=== PATIENT | male | born 1985 | race Two or more races ===

== ENCOUNTER 2017-02-05 17:07 | Emergency (ER) | payer SELFPAY ==
[2017-02-05 17:11] VITALS: BP 119/66
--- NOTE | 2017-02-05 18:04 | RAD ---
INDICATION: Left ankle injury. TECHNIQUE: 3 views of the left ankle were obtained. FINDINGS: There is diffuse soft tissue swelling. There is a transverse fracture of the medial malleolus which extends to the articular margin. The distal fragment is distracted inferior approximately 8 mm. On the very edge of the film note is made of a fracture of the mid diaphysis of the fibula. IMPRESSION: 1. TRANSVERSE DISPLACED INTRA-ARTICULAR FRACTURE OF THE MEDIAL MALLEOLUS. 2. FRACTURE OF THE MID DIAPHYSIS OF THE FIBULA PARTIALLY VISUALIZED ON THIS EXAM.
--- NOTE | 2017-02-05 18:05 | RAD ---
INDICATION: Left lower leg injury. TECHNIQUE: 2 views of the left lower leg were obtained. FINDINGS: There is an oblique slightly comminuted fracture of the mid diaphysis of the fibula. The distal fragment is displaced lateral proximal one cortical diameter. Again note is made of a transverse displaced fracture of the medial malleolus. IMPRESSION: 1. OBLIQUE SLIGHTLY DISPLACED FRACTURE OF THE MID DIAPHYSIS OF THE FIBULA. 2. TRANSVERSE DISPLACED INTRA-ARTICULAR FRACTURE OF THE MEDIAL MALLEOLUS.
--- NOTE | 2017-02-05 18:54 | ED ---
Lower Extremity - HPI Summary HPI Summary: Patient presents with injury to the left leg playing soccer. He thinks he everted his ankle as he fell. He is only having pain over the medial malleolus and denies pain in the leg or knee or foot. Denies numbness, tingling. color or temperature changes. Obvious deformity seen over medial portion of the left ankle without ecchymosis or break in skin. Denies other injuries or hitting his head. He denies previous injury to the leg. - History of Current Complaint Chief Complaint: EDExtremityLower Stated Complaint: LEFT ANKLE PAIN Time Seen by Provider: 02/05/17 18:02 Hx Obtained From: Patient Mechanism Of Injury: Fall From A Standing Position Onset of Pain: Immediate Onset/Duration: Hours Severity Initially: Moderate Severity Currently: Moderate Pain Intensity: 8 Pain Scale Used: 0-10 Numeric Timing: Constant Location: Is Discrete @ - left medial malleolus Character Of Pain: Aching Associated Signs And Symptoms: Positive: Swelling Aggravating Factor(s): Standing, Ambulation Alleviating Factor(s): Elevation Able to Bear Weight: No - Risk Factors Gout Risk Factors: Male DVT Risk Factors: Negative Septic Arthritis Risk Factor: Negative - Allergies/Home Medications Allergies/Adverse Reactions: Allergies Allergy/AdvReac Type Severity Reaction Status Date / Time No Known Allergies Allergy Verified 02/05/17 17:12 PMH/Surg Hx/FS Hx/Imm Hx Previously Healthy: Yes - Immunization History Hx Pertussis Vaccination: No Immunizations Up to Date: Unable to Obtain/Confirm Infectious Disease History: No Infectious Disease History: Denies: Traveled Outside the [place] in Last 30 Days - Social History Occupation: Employed Full-time Lives: With Family Alcohol Use: None Hx Substance Use: No Substance Use Type: Reports: None Hx Tobacco Use: No Smoking Status (MU): Never Smoked Tobacco Do You Chew or Dip Tobacco: No Review of Systems Constitutional: Negative Eyes: Negative Cardiovascular: Negative Respiratory: Negative Positive: no symptoms reported, see HPI Positive: Arthralgia Skin: Negative Psychological: Normal All Other Systems Reviewed And Are Negative: Yes Physical Exam - Summary Physical Exam Summary: Thorough physical exam was performed, focusing on ankle special tests. Pain on palpation over medial aspect of the left ankle and superior aspect of ankle over deltoid ligaments. No pain on palpation over lateral side. Due to patient pain around injury, physical exam was limited. Unable to perform anterior drawer test or talar tilt test d/t pain. Cardona test negative. Limited ROM. Dorsiflexion, great toe extension and plantar flexion intact however limited. No pain on palpation over medial or lateral lower extremity. No pain with knee flexion. Pulses intact bilaterally. No temperature change or pallor noted bilaterally. Obvious deformity over medial malleolus noted. No lesion or disruption of skin is seen. Unable to bear weight. Triage Information Reviewed: Yes Vital Signs On Initial Exam: Initial Vitals Temp Pulse Resp BP Pulse Ox 97.6 F 88 15 119/66 100 02/05/17 17:10 02/05/17 17:10 02/05/17 17:10 02/05/17 17:10 02/05/17 17:10 Completion Of Physical Exam Limited Due To: Dementia Appearance: Positive: Well-Appearing, Well-Nourished Skin: Positive: Warm, Skin Color Reflects Adequate Perfusion Eyes: Positive: EOMI, BRET Neck: Positive: Supple, No Lymphadenopathy Respiratory/Lung Sounds: Positive: Clear to Auscultation, Breath Sounds Present Musculoskeletal: Positive: Pain @ - medial malleolus on palpation Neurological: Positive: Normal, Sensory/Motor Intact, Alert, Oriented to Person Place, Time Psychiatric: Positive: Normal AVPU Assessment: Alert - Rothsay Coma Scale Best Eye Response: 4 - Spontaneous Best Motor Response: 6 - Obeys Commands Best Verbal Response: 5 - Oriented Procedures - Splinting Location: left lower extremity Pre-Made Type: plaster Hand-Made Type: plaster Splint: with sugar tong Pre-Proc Neuro Vasc Exam: normal Post-Proc Neuro Vasc Exam: normal Diagnostics - Vital Signs Vital Signs Temp Pulse Resp BP Pulse Ox 02/05/17 17:11 97.6 F 85 16 119/66 100 02/05/17 17:10 97.6 F 88 15 119/66 100 - Laboratory Lab Statement: Any lab studies that have been ordered have been reviewed, and results considered in the medical decision making process. - Radiology No standard instances Xray Interpretation: Positive (See Comments) Radiology Interpretation Completed By: Radiologist - IMPRESSION: 1. OBLIQUE SLIGHTLY DISPLACED FRACTURE OF THE MID DIAPHYSIS OF THE FIBULA. 2. TRANSVERSE DISPLACED INTRA-ARTICULAR FRACTURE OF THE MEDIAL MALLEOLUS Lower Extremity Course/Dx - Course Course Of Treatment: Patient presents after injury from soccer with eversion of left ankle with pain to the medial malleolus with obvious deformity with no pain in knee or foot. No ecchymosis. IMPRESSION: 1. OBLIQUE SLIGHTLY DISPLACED FRACTURE OF THE MID DIAPHYSIS OF THE FIBULA. 2. TRANSVERSE DISPLACED INTRA-ARTICULAR FRACTURE OF THE MEDIAL MALLEOLUS. Plaster posterior walking with sugar tong placed. Patient tolerated well. [place] rx. Return precautions and instructions for crutches given. Patient OK iwth discharge. - Diagnoses Differential Diagnosis/HQI/PQRI: Positive: Contusion, Dislocation, Fracture ( Closed), Fracture (Open) Provider Diagnoses: Left fibular fracture, Medial malleolar fracture Discharge - Discharge Plan Condition: Stable Disposition: HOME Prescriptions: HYDROcodone/ACETAMIN 5-325 MG* [[place] 5-325 TAB*] 1 tab PO Q4H PRN #12 tab MDD 6 PRN Reason: Pain Patient Education Materials: Ankle Fracture (ED) Referrals: No Primary Care Phys,NOPCP [Primary Care Provider] - Min Siegel MD [Medical Doctor] - Additional Instructions: Follow up with Dr. Siegel. Call on Tuesday for appt Crutches for ambulation given. Ibuprofen 600mg three times daily with meals for pain. [place] if ibuprofen is not alleviating pain. Take these on opposite schedule as ibuprofen. DO NOT BEAR ANY WEIGHT ON ANKLE. Follow up with orthopedic physician in 5-7 days. If numbness, tingling, decreased sensation, increased pain, temperature changes or pallor noted in toes, come back to ER immediately. Protect the area. Ice. Not directly on the skin. Cover with a towel. Apply ice no more than 30 minutes at a time
== END 2017-02-05 20:21 | disposition home or self-care (01) ==
LOC: ED 17:07
DX: S82.402A Unspecified fracture of shaft of left fibula, initial encounter for closed fracture (principal); S82.52XA Displaced fracture of medial malleolus of left tibia, initial encounter for closed fracture; W19.XXXA Unspecified fall, initial encounter; Y93.9 Activity, unspecified; Y92.9 Unspecified place or not applicable; Y99.9 Unspecified external cause status
CPT/HCPCS: 99282

== ENCOUNTER → 2017-02-14 07:58 | Day surgery (SDC) | payer SELFPAY ==
--- NOTE | 2017-02-10 02:18 | HP ---
PREOPERATIVE HISTORY AND PHYSICAL: DATE OF ADMISSION/SURGERY: 02/14/17 DATE OF OFFICE VISIT: 02/08/17 ATTENDING SURGEON: Dr. Min Siegel. CHIEF COMPLAINT: Left leg fracture. PROCEDURE: Left ankle fracture open reduction and internal fixation. HISTORY OF PRESENT ILLNESS: Rashad is a 31-year-old male who presents to the clinic with left leg medial malleolus and fibular shaft fracture. The patient states that he was warming up for a soccer game. He stepped in a hole and fell on to the lateral aspect of his left leg. The injury was on 02/05/17. He heard and felt a pop immediately. He had immediate pain and swelling with difficulty weightbearing. He went to the ER where x-rays were performed and revealed a left leg medial malleolus fracture and fibular shaft fracture. He was placed in a splint. He reports some pain mostly in the medial aspect of his left ankle. He is taking ibuprofen as needed for the pain. He reports no prior injury or surgery to the left leg. He has been compliant with crutches. He rates the pain as a 7/10, aching pain. He has broken his thumb before; however, has had no prior fractures in his legs. He denies numbness and tingling. PAST MEDICAL HISTORY: No current problems. PAST SURGICAL HISTORY: No prior surgeries. MEDICATIONS: No active medications. ALLERGIES: No known drug allergies. FAMILY HISTORY: He denies pertinent family history. SOCIAL HISTORY: He lives with his spouse. 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 He denies tobacco use. He reports occasional alcohol use. He exercises regularly. He is right-hand dominant. REVIEW OF SYSTEMS: General: Negative for fever, chills, night sweats. No known anesthesia problems. HEENT: Negative for headache, lightheadedness, or syncopal episodes. Integumentary: Negative for abrasions, lesions, or open wounds. Cardiothoracic: Negative for chest pain, palpitations, or edema. Negative for hypertension. Pulmonary: Negative for shortness of breath with exertion, chronic cough, or COPD. GI: Negative for nausea, vomiting, diarrhea , constipation, or GERD. : Negative for nocturia, urinary frequency, urinary urgency, history of UTI, or kidney problems. Musculoskeletal: Positive for current complaint. Neuro: Negative for numbness or tingling, history of seizure, stroke, or epilepsy. Endocrine: Negative for diabetes or thyroid issues. Heme: Negative for easy bruising, anemia, excessive bleeding, history of DVT or PE or history of bleeding disorder. Infectious Disease: Negative for history of MRSA, hep C, or HIV. PHYSICAL EXAMINATION GENERAL: A 31-year-old, well-developed, well-nourished male in no acute distress. Alert and oriented x3. Appropriate mood and affect. VITAL SIGNS: Height 70, weight 180. Pulse 79, blood pressure 120/73, temperature 98.0. Pain level is 7. BMI 25.8. HEENT: Normocephalic, atraumatic. PERRLA. Throat clear. NECK: Supple. PULMONARY: Lungs are clear to auscultation bilaterally. No wheezing, rhonchi, or rales. CARDIO: Regular rate and rhythm. S1 and S2. No murmurs, gallops, or rubs. No edema. ABDOMEN: Positive bowel sounds, soft, nontender. MUSCULOSKELETAL: Left lower extremity: Skin is intact. No warmth or erythema. There is a splint intact. There is visible swelling in the toes. The patient is able to flex and extend all of his toes. His calf is soft and nontender to palpation. +2 dorsalis pedis pulse. Sensation is intact to light touch distally. Right lower extremity: Skin is intact. No warmth or erythema. Nontender to palpation. Full range of motion. +2 dorsalis pedis pulse. Sensation is intact to light touch distally. NEUROLOGIC: Alert and oriented x3. Cranial nerves grossly intact. Sensation is intact to light touch. DIAGNOSTIC STUDIES: Multiple view x-rays of the left leg reveal displaced medial malleolus fracture and displaced fracture of the diaphysis of the fibula. IMPRESSION: Left leg displaced medial malleolus fracture and displaced fibular diaphysis fracture. PLAN: The patient is scheduled to undergo a left ankle fracture open reduction and internal fixation with Dr. Siegel on 02/14/17. Before surgery, he should ice and elevate. Use ibuprofen as needed for the pain. Risks of surgeries to include infection, bleeding, blood clot, arthritis, stiffness, injury to blood vessels, nerves, surrounding structures, risk of anesthesia were explained to the patient. He has agreed to undergo with the left ankle fracture open reduction and internal fixation. He will return in about 10 to 14 days postop for followup and suture removal. Percocet was sent to the patient's pharmacy for postop pain management and Keflex was sent for antibiotic prophylaxis. BOBY ALMONTE [id number]/[facility] #: [id number] LYNN
[~2017-02-14 07:58] MED LIST: Buffered Lidocaine 0.9% SYRIN* 5 ML/SYR SYRINGE INTRADERM ONE; Bupivacaine 0.25% SDV* 30 ML ONE; Dexamethasone IV* 4 MG/ML 1 ML (4 MG) IV SLOW PU ONE; Dexamethasone IV* 4 MG/ML 1 ML (4 MG) ONE; Famotidine IV* 10 MG/ML 2 ML (20 mg) IV ONE; Famotidine IV* 10 MG/ML 2 ML (20 mg) ONE; KETAMINE HCL* 50 MG/ML 10 ML VIAL ONE; Ketorolac INJ* 30 MG/ML 1 ML VIAL ONE; Lidocaine 2% PF * 5 ML VIAL ONE; Midazolam* 1 MG/ML 2 ML VIAL (2 MG) ONE; Ondansetron INJ* 2 MG/ML VIAL ONE; Propofol* 10 MG/ML 20 ML BTL IV PUSH ONE; ceFAZolin 2 GM PREMIX(*) 2 GM/50 ML BAG IVPB ONE; fentaNYL* 50 MCG/ML 2 ML VIAL (100 MCG VIAL) ONE; fentaNYL* 50 MCG/ML 5 ML VIAL (250 MCG VIAL) ONE; oxyCODONE/Acetamin 5/325 MG* TAB ONE
[2017-02-14 14:15] VITALS: BP 141/77
--- NOTE | 2017-02-14 14:52 | RAD ---
CPT II Codes: 6045F INDICATION: Left ankle fracture. Fluoroscopic services provided for referring physician. 41.5 seconds of fluoroscopy time was used. 15 spot images were obtained for internal fixation of a posterior and medial malleolus fracture. IMPRESSION: Fluoroscopic services provided for referring physician for open reduction and internal fixation.
--- NOTE | 2017-02-15 14:39 | OP ---
DATE OF OPERATION: 02/14/17 [facility] DATE OF : 81 SURGEON: Min Siegel MD TELECOMMUNICATIONS EQUIPMENT INSTALLER: BOBY Elena. An medical practice assistant was needed for the entirety of the case to help with positioning, retraction, and was utilized throughout all portions of the case. ANESTHESIOLOGIST: Dr. Crenshaw. ANESTHESIA: General. PRE-OP DIAGNOSES: Left ankle fracture incorporating the medial malleolus, posterior malleolus as well as high fibular fracture. POST-OP DIAGNOSIS: Bimalleolar fracture with disruption of the syndesmosis. OPERATIVE PROCEDURE: 1. Left ankle ORIF of the medial malleolus. 2. Dynamic exam of the syndesmosis using fluoro. 3. ORIF of syndesmosis with a TightRope. INDICATIONS: Rashad Hassan is a 31-year-old male who was playing soccer on 02/05/17 when he sustained an injury, was unable to weight bear. He was evaluated in the ER and this was found to be operative. He followed up in my clinic for definitive care. After extensive discussion of the risks and benefits of the surgery versus nonoperative treatment, he has elected to proceed with surgical management. Risks include, but are not limited to, bleeding, infection, damage to nerves, vessels, surrounding structures, the wound not healing, persistent pain, need for further surgery, risk of arthritis , DVT, scarring, persistent pain, incomplete relief of symptoms, symptomatic hardware, need for further surgery as well as risk of anesthesia. COMPLICATIONS: None. ESTIMATED BLOOD LOSS: Minimal. TOURNIQUET TIME: 72 minutes at 250 mmHg. DISPOSITION: Stable. IMPLANTS USED: Two Synthes 4.0 cannulated screws and one Arthrex TightRope. DESCRIPTION OF PROCEDURE: The patient was greeted in the preoperative area by the attending surgeon. Correct extremity was marked and consent was confirmed. The patient was brought back to the operating suite where he was placed in supine position on the operating table. He then underwent general anesthesia with LMA intubation after which a bump was placed under his ipsilateral hip. A nonsterile tourniquet was placed high in the proximal thigh. The splint was then removed and the skin was examined. The skin was intact. He did have some mild fungus changes in between his toes distally, but there were no open wounds. The hair was clipped using a surgical clipper at the sites of the incision. The leg was then prepped and draped in the usual sterile fashion beginning with chlorhexidine soap, scrub, and alcohol wipe, and a final prep with ChloraPrep. After appropriate surgical pause indicating side, site, and procedure, administration of antibiotics, an Esmarch was used to exsanguinate the limb. A 15- blade was used to make a hockey-stick incision over the medial malleolus. Soft tissues were carefully dissected. The fracture was identified easily. The fascial layer was released proximally and distally so that the fracture site could be booked open and then cleaned carefully with a curette as well as irrigated thoroughly. Once this was done, a provisional reduction was then done. This was confirmed under C-arm. Then, 2 K-wires were placed in parallel to reduce the medial malleolus. A [place] was also used to make sure that the fracture did not go into varus so that the joint space is protected and maintained. Once the screws were confirmed in the AP and lateral views, these were then drilled with a cannulated drill bit and size 2/4.0 cannulated screws were then placed with excellent purchase. At this point, the external rotation stress test was then done under fluoroscopic guidance and there was evidence of mortise widening and decision was made to do a syndesmotic fixation. A 15-blade was used to make an incision approximately 2 cm proximal to the joint line. The soft tissues were carefully dissected. Care was taken to preserve any nerves and vessels that were present. The periosteum was then sharply incised and then the Arthrex guidewire was drilled, was passed from the fibula to the tibia approximately 2 cm proximal to the joint space in line with the joint, slightly angled from a posterior to anterior portion about 30 degrees with care to try to prevent interfering with the previous screw placement. Once this was appropriately placed, the cannulated drill was then passed over the screw through all 4 cortices. Again, this was confirmed by x- rays. The TightRope was then passed through the previously drilled tunnel and flipped on the tibial side. All soft tissue and debris was cleared to make sure that this was seated against bone. Once this was done, this was then cinched back into position with the foot in the dorsi-flexion and this was found to restore the syndesmosis. The stress test was repeated again and there was no evidence of medial clear space widening. Final images were obtained. The wounds were copiously irrigated. The wounds were closed in layers. The fascial layers were closed with 2-0 Vicryl. The subcutaneous tissues were closed with 2-0 Vicryl and the skin with 3-0 nylon. The wounds were then injected with approximately 30 cc of 0.25% Marcaine. Sterile dressings were applied. The tourniquet was released for a total time of 72 minutes. A well- padded posterior splint was then placed on the extremity. He was awoken from anesthesia and transferred to the PACU in stable condition. POSTOPERATIVE PLAN: He was able to flex and extend the digits. He will be nonweightbearing for approximately 8 weeks. He will follow up in our office in approximately 2 weeks for cast change versus being transitioned to a boot and removal of the sutures. DVT prophylaxis was considered and he will be placed on aspirin prophylactically. He will be discharged on pain medications as well as antibiotics. He will be discharged on pain medications and antibiotics. [id number]/[facility] #: [id number] LYNN
== END | disposition home or self-care (01) ==
LOC: OR 07:58
PROVIDERS: ATTEND Orthopaedic Surgery
DX: S82.52XA Displaced fracture of medial malleolus of left tibia, initial encounter for closed fracture (principal); W19.XXXA Unspecified fall, initial encounter; Y93.66 Activity, soccer; Y92.322 Soccer field as the place of occurrence of the external cause
CPT/HCPCS: 76000; A9270-GY; C1713; J0690; J1100; J1885; J2250; J2405; J2704; J3010

== ENCOUNTER 2019-08-20 13:54 | Emergency (ER) | payer OTHER ==
[2019-08-20 14:06] VITALS: BP 134/76
--- NOTE | 2019-08-20 14:13 | UC ---
Upper Extremity HPI - HPI Summary HPI Summary: 34yo male presenting with L elbow pain and swelling x4 weeks. Denies known injury or trauma. States pain comes and goes and is worse after a lot of movement/activity. States swelling improves with rest as well but that for the past two weeks, it "seems to be growing." Denies redness and warmth of the elbow. Denies decreased ROM. Denies current pain. Denies fever and chills. Patient states he injured the elbow 7-8 years ago. States his bone was chipped but did not require surgery. - History of Current Complaint Chief Complaint: UCUpperExtremity Stated Complaint: ELBOW PAIN Hx Obtained From: Patient Pain Intensity: 0 - Allergies/Home Medications Allergies/Adverse Reactions: Allergies Allergy/AdvReac Type Severity Reaction Status Date / Time No Known Allergies Allergy Verified 08/20/19 14:06 Home Medications: Home Medications NK [No Home Medications Reported] 08/20/19 [History Confirmed 08/20/19] PMH/Surg Hx/FS Hx/Imm Hx Previously Healthy: Yes - Surgical History Surgical History: Yes Surgery Procedure, Year, and Place: left ankle - Family History Known Family History: Positive: Non-Contributory - Social History Alcohol Use: Occasionally Substance Use Type: None Smoking Status (MU): Never Smoked Tobacco Review of Systems All Other Systems Reviewed And Are Negative: Yes Constitutional: Positive: Negative. Negative: Fever, Chills Skin: Negative: Bruising Respiratory: Positive: Negative Cardiovascular: Positive: Negative Gastrointestinal: Positive: Negative. Negative: Vomiting, Nausea Musculoskeletal: Positive: Arthralgia - L elbow, Edema - L elbow. Negative: Decreased ROM Neurological: Negative: Paresthesia, Numbness Physical Exam Triage Information Reviewed: Yes Appearance: Well-Appearing, No Pain Distress, Well-Nourished Vital Signs: Initial Vital Signs Temp 98.6 F 08/20/19 14:02 Pulse 83 08/20/19 14:02 Resp 16 08/20/19 14:02 BP 134/76 08/20/19 14:02 Pulse Ox 100 08/20/19 14:02 Vital Signs Reviewed: Yes Eyes: Positive: Conjunctiva Clear ENT: Positive: Hearing grossly normal Neck: Positive: Supple Respiratory: Positive: No respiratory distress Cardiovascular: Positive: Pulses Normal, Brisk Capillary Refill Musculoskeletal: Positive: Strength Intact, ROM Intact - equal and full flexion and extension of elbows b/l, Edema @ - L olecranon process, Other: - no tenderness to palpation of L olecranon Neurological: Positive: Alert Psychological: Positive: Age Appropriate Behavior Skin Exam: Normal - no erythema, warmth, lesions, abrasion, s/s of infection appreciated Diagnostics - Radiology L elbow Radiology Interpretation Completed By: Radiologist Summary of Radiographic Findings: REPORT AND IMPRESSION: #. Normal articular alignment. #. Chronic accessory ossicle or old avulsion fracture fragment adjacent to the medial epicondyle. #. Joint effusion and 0.5 cm loose body at the anterior joint recess. #. Mild osteoarthritis. #. No acute fracture evident. #. Significant focal soft tissue swelling overlying the olecranon process suspicious for olecranon bursitis. Correlate with clinical assessment. Upper Extremity Course/Dx - Course Course Of Treatment: Educated patient on elbow bursitis and symptomatic treatment. No sign of cellulitis or septic arthritis on physical exam. Educated on s/s of infective bursitis and instructed to go to ED if any occur. Instructed to follow up with ortho for further eval and treatment of bursitis. Patient voiced understanding and agreed with treatment plan. - Differential Dx/Diagnosis Provider Diagnosis: Olecranon bursitis of left elbow Discharge ED - Sign-Out/Discharge Documenting (check all that apply): Patient Departure All imaging exams completed and their final reports reviewed: Yes - Discharge Plan Condition: Stable Disposition: HOME Patient Education Materials: Elbow Bursitis (ED) Referrals: Min Siegel MD [Medical Doctor] - Additional Instructions: As discussed, you have elbow bursitis. Rest and ice the elbow to help alleviate pain and swelling. Apply ice no more than 20 minutes at a time. You may also take ibuprofen over the counter to help reduce inflammation. Follow up with the orthopedic referral listed below for further evaluation and treatment. Go to the emergency room if you experience new or worsening symptoms, including severe pain, fever, or redness and warmth of the elbow. - Billing Disposition and Condition Condition: STABLE Disposition: Home
== END 2019-08-20 15:38 | disposition home or self-care (01) ==
LOC: UCEAST 13:54
DX: M70.22 Olecranon bursitis, left elbow (principal); M19.022 Primary osteoarthritis, left elbow; M25.422 Effusion, left elbow; M79.89 Other specified soft tissue disorders
CPT/HCPCS: 99211; G0463